=== PATIENT | male | born 1965 | race Caucasian/White ===

== ENCOUNTER 2022-04-12 17:11 | Emergency (ER) | payer BC, SELFPAY ==
[2022-04-12 17:20] VITALS: BP 178/113; PULSE 95; RESP 18; TEMP 36.2; O2SAT 99; BMI 32.3
--- NOTE | 2022-04-12 17:55 | ED.GENADULT ---
HPI - General Adult General Chief complaint: High Blood Pressure Stated complaint: Elevated BP Can't see in R Eye Time Seen by Provider: 04/12/22 17:26 History of Present Illness HPI narrative: 56-year-old man presenting to the emergency department with complaint of increasing floaters in his right eye. Apparently had a a retinal procedure done last year. Over the last few weeks has started to note some floaters and intensified last couple of days. 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 No headache. No chest pain or shortness of breath. Actually called in to [facility] for a follow-up appointment though it was rather distant but given these would intensifying symptoms was able to get an appointment for tomorrow morning. Admittedly is rather nervous about this. Does not have a diagnosis of high blood pressure. Related Data Home Medications Medication Instructions Recorded Confirmed albuterol sulfate 2.5 mg/3 mL mg 04/12/22 (0.083 %) solution for nebulization albuterol sulfate 90 mcg/actuation inhalation 04/12/22 aerosol inhaler Allergies Allergy/AdvReac Type Severity Reaction Status Date / Time No Known Drug Allergies Allergy Verified 04/12/22 17:24 Review of Systems Status of ROS: Reports: 6 or more systems reviewed and unremarkable except as noted in History and below [facility] Social History Smoking Status: Never smoker Do you use any of these nicotine containing products: None Second hand tobacco smoke exposure: No How often do you have a drink containing alcohol: never How often do you have six or more drinks on one occasion: Never AUDIT-C Alcohol total score: 0 Non-prescribed substance use: denies use service: No Exam Narrative: Exam Narrative: Pleasant. appears mild to moderately anxious. skin is warm and dry and head atraumatic. CN 2-12 look to be intact. pupils are brisk and equal. EOM are full and NT. lungs appear to be clear and heart in a regular rate and rhythm. well-perfused peripherally. returning to eyes - sclera are clear. on fundoscopic exam frankly difficult to visualize details in the right retina though there is light reflex. the left eye with easily visualized and healthy vasculature. Const: Vital Signs, click to edit/add: Vital Signs - 24 hr 04/12/22 17:20 Temperature 97.2 F L Pulse Rate [Pulse Oximeter] 95 Respiratory Rate 18 Blood Pressure [Ri ght Upper Arm] 178/113 H Pulse Oximetry 99 Oxygen Delivery Me thod Room Air Documenting provider has reviewed patient's vital signs: yes Course Vital Signs Vital signs: Initial Vital Signs Temperature 97.2 F L 04/12/22 17:20 Temperature Source Temporal Artery Scan 04/12/22 17:20 Pulse Rate 95 04/12/22 17:20 Pulse Rhythm 04/12/22 17:20 Respiratory Rate 18 04/12/22 17:20 Blood Pressure 178/113 H 04/12/22 17:20 Blood Pressure Mean 134 04/12/22 17:20 Blood Pressure Position Sitting 04/12/22 17:20 Pulse Oximetry 99 04/12/22 17:20 Oxygen Delivery Method 04/12/22 17:20 Vital Signs Temperature 97.2 F L 04/12/22 17:20 Pulse Rate 95 04/12/22 17:20 Respiratory Rate 18 04/12/22 17:20 Blood Pressure 178/113 H 04/12/22 17:20 Pulse Oximetry 99 04/12/22 17:20 Oxygen Delivery Method 04/12/22 17:20 Temperature 97.2 F L 04/12/22 17:20 Pulse Rate 95 04/12/22 17:20 Respiratory Rate 18 04/12/22 17:20 Blood Pressure 178/113 H 04/12/22 17:20 Pulse Oximetry 99 04/12/22 17:20 Oxygen Delivery Method 04/12/22 17:20 Medical Decision Making MDM Narrative Medical decision making narrative: as noted, has an appointment in the morning, about 15-16 hours from now. I did speak to opthomologist care provider from [facility]. emphasized need to keep AM appointment. no other tx necessary but to avoid exertion. I suspect elevated BP due primarily to anxiety over current happenings. Discharge Plan Discharge Clinical Impression: Visual floaters, Stress, High blood pressure Patient Disposition: Home, Self-Care Condition: Stable Additional Instructions: Yes. Do please make that appointment tomorrow morning as scheduled. Do your best to relax. Stay well hydrated. Try not to exert yourself too much until re-evaluated. If feeling too much stress, can take the 1 of these tablets of lorazepam as prescribed. Prescriptions: No Action albuterol sulfate 2.5 mg /3 mL (0.083 %) solution for nebulization Label Comments: INHALE 3ML VIA A NEBULIZER 2 TIMES DAILY albuterol sulfate 90 mcg/actuation HFA aerosol inhaler INHALATION Stand Alone Forms: [facility] Info Instructions
--- NOTE | 2022-04-12 18:33 | ED.NURSE ---
Pt discharged with 2 ativan per MD order. Instructions given and discussed including not to take while drinking, driving or operating machinery. Pt verbalized understanding of teaching and provided teach-back.
[2022-04-12] MEDS: LORazepam 1 MG TABLET PO (18:35)
== END 2022-04-12 18:38 | disposition home or self-care (01) ==
LOC: ED 18:37
PROVIDERS: Emergency Provider Family Medicine
DX: H43.391 Other vitreous opacities, right eye (principal); R03.0 Elevated blood-pressure reading, without diagnosis of hypertension
CPT/HCPCS: 99282; 99283; A9270